=== PATIENT | female | born 1990 | race Caucasian/White ===

== ENCOUNTER 2022-06-30 13:30 | Emergency (ER) | payer OTHER ==
[~2022-06-30] VITALS: Ht 162.6 cm; Wt 52.3 kg
[2022-06-30 13:42] VITALS: TEMP 98.3
[2022-06-30 14:45] LABS: BASO % 0.4 % (0.0-2.0); EOS # 0.1 K/mm3 (0.0-0.7); EOS % 1.1 % (0.0-4.0); GRAN # 7.8 K/mm3 (1.4-6.5); GRAN % 77.8 % (42.2-75.2); HEMOGLOBIN 11.2 g/dl (12.5-16.0); LYMPH # 1.3 K/mm3 (1.2-3.4); LYMPH % 12.8 % (20.0-51.0); MEAN CELL VOLUME 87 fl (80.0-100.0); MEAN CORPUSCULAR HEMOGLOBIN 31 pg (27-31); MEAN CORPUSCULAR HGB CONC 35 g/dl (33.0-37.0); MEAN PLATELET VOLUME 9.9 fl (7.4-10.4); MONO # 0.8 K/mm3 (0.1-0.6); MONO % 7.5 % (1.7-9.3); PLATELET COUNT 229 K/mm3 (130-400); RED BLOOD COUNT 3.63 M/mm3 (4.10-5.30); REDCELL DISTRIBUTION WIDTH-CV 12.1 % (11.5-14.5)
[2022-06-30 14:48] LABS: HEMATOCRIT 31.7 % (37.0-47.0)
[2022-06-30 14:53] LABS: INR 1.2 (0.8-3.0); PROTHROMBIN TIME 13.4 SECONDS (9.7-12.8)
[2022-06-30 15:07] LABS: CALCIUM 9.4 mg/dL (8.4-10.2); CREATININE, serum 0.68 mg/dL (0.57-1.11); POTASSIUM 3.8 mmol/L (3.5-4.5)
[2022-06-30] MEDS ORDERED: LOVENOX 300MG SQ ×2 (15:57→16:13)
[2022-06-30 16:36] VITALS: BP 112/81; PULSE 99
== END 2022-06-30 16:50 | disposition home or self-care (01) ==
LOC: COL.ER 13:30
PROVIDERS: Physician Assistant
DX: O99.411 Diseases of the circulatory system complicating pregnancy, first trimester (principal); I82.402 Acute embolism and thrombosis of unspecified deep veins of left lower extremity; Z3A.08 8 weeks gestation of pregnancy; Z79.01 Long term (current) use of anticoagulants; Z28.310 Unvaccinated for COVID-19
CPT/HCPCS: J1650

== ENCOUNTER 2023-11-22 14:15 | Day surgery (SDC) | payer OTHER ==
[~2023-11-22] VITALS: Ht 162.6 cm; Wt 52.3 kg
[2023-11-22] VITALS (7 sets, daily range): BP systolic 87–99; BP diastolic 42–65; PULSE 85–97; TEMP 98–99.4
[~2023-11-22 14:15] MED LIST: CEPHALEXIN500 M1 PO; LOVENOX 300MG SQ; LOVENOX 4040 MG/0.4 SQ; MULTI-VITAMIN W1 TA1 PO; [UNRECOGNIZED DRUG - CODE]
[2023-11-22] MEDS ORDERED: Ondansetron 4 MG/2 ML VIAL IV ONE ×2 (14:45→17:30)
[2023-11-22 15:01] LABS: BASO % 0.4 % (0.0-2.0); EOS # 0.3 K/mm3 (0.0-0.7); EOS % 3.5 % (0.0-4.0); GRAN # 4.4 K/mm3 (1.4-6.5); HEMOGLOBIN 12.3 g/dl (12.5-16.0); LYMPH # 3.1 K/mm3 (1.2-3.4); LYMPH % 37.4 % (20.0-51.0); MEAN CELL VOLUME 87 fl (80.0-100.0); MEAN CORPUSCULAR HEMOGLOBIN 30 pg (27-31); MEAN CORPUSCULAR HGB CONC 35 g/dl (33.0-37.0); MEAN PLATELET VOLUME 9.6 fl (7.4-10.4); MONO # 0.6 K/mm3 (0.1-0.6); MONO % 6.6 % (1.7-9.3); PLATELET COUNT 364 K/mm3 (130-400); RED BLOOD COUNT 4.04 M/mm3 (4.10-5.30); REDCELL DISTRIBUTION WIDTH-CV 12.7 % (11.5-14.5)
[2023-11-22 15:04] LABS: ALBUMIN 4.1 g/dL (3.5-5.0); BILIRUBIN,TOTAL 0.2 mg/dL (0.2-1.2); CALCIUM 9.1 mg/dL (8.4-10.2); CREATININE, serum 0.7 mg/dL (0.57-1.11); POTASSIUM 3.5 mEq/L (3.5-4.5)
[2023-11-22 15:08] LABS: HEMATOCRIT 35.3 % (37.0-47.0)
[2023-11-22] MEDS ORDERED: NS 1,000 ML IV ONE ×3 (15:45→18:45)
[2023-11-22] MEDS ORDERED: LOVENOX 4040 MG/0.4 SQ (15:56)
[2023-11-22] MEDS ORDERED: Tranexamic Acid 1,000 MG in NS 100 ML IV ONE (17:45)
[2023-11-22] MEDS ORDERED: fentaNYL 50 MCG/ML 2 ML VIAL ONE (18:41)
[2023-11-22] MEDS ORDERED: Methylergonovine 0.2 MG/ML 1 ML AMPUL ONE (19:02)
[2023-11-22] MEDS ORDERED: Ondansetron 4 MG/2 ML VIAL ONE (19:14)
[2023-11-22] MEDS ORDERED: Ketorolac 30 MG/ML VIAL ONE (19:22)
--- NOTE | 2023-11-22 19:25 | NUR ---
REPORT RECIEVED FROM NEYDA QUESADA.
--- NOTE | 2023-11-22 19:45 | NUR ---
Patient brought up by OR, RN -LAKSHMI. VTAL SIGNS ARE 93/61BP, 100% RA, 98.4 TEMP AND AXO X 4. 125 ML/HR PRBC TYPE 0 + RUNNING IN LT AC 18 GAUGE. PATIENT DENIES PAIN. PERIPAD EXIHITS MINIMAL 2CMX 2CM BRIGHT RED BLOOD.
[2023-11-22] MEDS ORDERED: Ondansetron 4 MG/2 ML VIAL IV PRN (20:00)
[2023-11-22] MEDS ORDERED: Naloxone 0.4 MG/ML VIAL IV PRN (20:00)
[2023-11-22] MEDS ORDERED: Acetaminophen 500 MG TAB PO SCH (20:00)
[2023-11-22] MEDS ORDERED: LR 1,000 ML IV SCH (20:00)
[2023-11-22] MEDS ORDERED: oxyCODONE 5 MG TAB PO PRN (20:00)
--- NOTE | 2023-11-22 20:22 | NUR ---
CALL PLACED TO MD LINH. REPORTED BP 91/61 WITH MAP OF 67. NO NEW ORDERS GIVEN.
[2023-11-22] MEDS ORDERED: Docusate Sodium 100 MG CAP PO SCH (21:00)
[2023-11-22 22:16] LABS: HEMATOCRIT 23.7 % (37.0-47.0); HEMOGLOBIN 8.2 g/dl (12.5-16.0)
--- NOTE | 2023-11-22 22:22 | NUR ---
CALLED PLACED TO DR. MELTON WITH [facility] CHECK LAB RESULTS OF H&H HgB 8.2. NO NEW ORDERS GIVEN. PATIENT OKAY TO DISCHARGE.
--- NOTE | 2023-11-22 22:25 | NUR ---
PERIPAD CHANGED MINIMAL INCREASE IN BLEEDING NOTED [id number].
--- NOTE | 2023-11-22 23:18 | NUR ---
DISCHARGE PAPERS SIGNED AND INSTRUCTIONS ACKNOWLEDGED BY PATIENT. RT AC IV REMOVED CATHETER INTACT. LT AC IV REMOVED CATHETER INTACT. DISCHARGE VITALS AT 23:15 ARE 95/58 BP, 98.7 TEMP, 94 PULSE AND 98% ON RA. PATIENT ACCOMPANIED BY AND ESCORTED OUT VIA WHEELCHAIR.
== END 2023-11-22 23:34 | disposition home or self-care (01) ==
LOC: COL.ER 14:15 → MEDICAL 18:23 → SDCO 18:23 → COL.ER 18:23 → MEDICAL 18:24 → SDCO 23:34 → MEDICAL 23:34
PROVIDERS: Nurse Practitioner; Obstetrics & Gynecology
DX: O03.4 Incomplete spontaneous abortion without complication (principal); D62 Acute posthemorrhagic anemia; I95.9 Hypotension, unspecified; Z86.718 Personal history of other venous thrombosis and embolism; Z79.01 Long term (current) use of anticoagulants
CPT/HCPCS: OP; G0378; J1885; J2210; J2405; J2704; J3010; J7030; J7120; P9016